=== PATIENT | female | born 1985 | race Caucasian/White ===

== ENCOUNTER 2020-03-08 10:21 | Emergency (ER) | payer SELFPAY ==
--- NOTE | ~2020-03-08 | US_ITS ---
US right upper quadrant INDICATION: Right upper quadrant pain, nausea and vomiting PROCEDURE: Realtime right upper abdominal ultrasound. COMPARISON: Ultrasound dated 03/01/2011 FINDINGS: The pancreas is normal without focal mass or pancreatic ductal dilation. Liver echotexture is increased, consistent with fatty infiltration. There is normal directional flow in the portal ve in. The gallbladder is normal without stones, gallbladder wall thickening or pericholecystic fluid. Comm on bile duct measures 3 mm. No sonographic Maxwell's sign. IMPRESSION: 1: Hepatic steatosis. Reviewed, dictated and finalized at location B. IMPRESSION: 1: Hepatic steatosis.
[2020-03-08 10:29] VITALS: BP 129/81; PULSE 69; RESP 16; TEMP 36.4; O2SAT 99
[2020-03-08 11:57] LABS: Basophils Percent Auto 0.5 % (0.2-1.2); Eosinophils Absolute Auto 0.1 K/mm3 (0-0.3); Eosinophils Percent Auto 1.9 % (0-4.4); Hemoglobin 12.6 g/dL (12.0-15.0); Immature Granulocyte Absolute 0.03 K/mm3 (0.00-0.031); Immature Granulocyte Percent A 0.5 % (0-0.5); Lymphocytes Absolute Auto 1.79 K/mm3 (0.9-3.2); Lymphocytes Percent Auto 28.6 % (18.3-44.2); Mean Corpuscular HGB Conc 34.1 g/dl (32-36); Mean Corpuscular Hemoglobin 31.3 pg (26-34); Mean Corpuscular Volume 91.8 fl (80-100); Mean Platelet Volume 10.5 fl (7.4-10.4); Monocytes Absolute Auto 0.4 K/mm3 (0.1-0.6); Monocytes Percent Auto 6.7 % (2.6-8.5); Neutrophils Absolute Auto 3.9 K/mm3 (1.3-6.7); Neutrophils Percent Auto 61.8 % (45.5-73.1); Platelet Count Result 263 k/mm3 (150-375); Red Blood Count 4.03 M/mm3 (4.2-5.4); Red Cell Distribution Width 11.9 % (11.5-14.5); White Blood Count 6.3 K/mm3 (4.5-10.0)
[2020-03-08 12:09] LABS: Alanine Aminotransferase 33 U/L (4-35); Alkaline Phosphatase 87 U/L (38-126); Aspartate Amino Transferase 34 U/L (14-36); Bilirubin,Total 0.4 mg/dL (0.2-1.3); Blood Urea Nitrogen 13 mg/dL (7-17); Calcium 8.9 mg/dL (8.4-10.2); Carbon Dioxide 27 mmol/L (22-30); Chloride 104 mmol/L (98-107); Estimated CRCL calculation 106 ml/min; Estimated Glomerular Filt Rate > 60; Glucose 102 mg/dL (65-105); Lipase 112 U/L (23-300); Potassium 3.9 mmol/L (3.4-5.0); Sodium 135 mmol/L (137-145)
--- NOTE | 2020-03-08 12:21 | ED.ABDPAIN ---
HPI - Abdominal Pain General Chief Complaint: Abdominal Pain Stated Complaint: abd pain/swelling/ho liver problems Time Seen by Provider: 03/08/20 10:35 History of Present Illness HPI narrative: Patient is a 35-year-old female who presents ER with epigastric and right upper quadrant abdominal discomfort. Reports she was seen at an outside hospital and had a CT scan that showed fatty liver. Reports she has episodes where her stomach becomes very distended and she has a lot of sharp pain that radiates to her back. She is not particularly flatulent or belching. She is tried simethicone and dicyclomine. She follows up with her doctor in 2 weeks but is concerned that that is not close enough. No fevers or chills or sweats. No diarrhea. Related Data Home Medications Medication Instructions Recorded Confirmed lamotrigine BID 03/08/20 levothyroxine DAILY 03/08/20 lithium carbonate 450 PO BID 03/08/20 quetiapine 600 HS 03/08/20 tramadol See Rx Instructions .ROUTE .COMPLEX 03/08/20 03/08/20 Allergies Allergy/AdvReac Type Severity Reaction Status Date / Time Penicillins Allergy Hives Verified 03/08/20 12:29 MOLD Allergy Hives Uncoded 03/08/20 12:28 Review of Systems Review of Systems: All systems reviewed & are unremarkable except as noted in HPI and below Constitutional: Constitutional: Denies chills, Denies fever(s) and Denies weakness ENT: Denies nasal congestion and Denies sore throat Respiratory: Respiratory: Denies cough and Denies dyspnea Gastrointestinal: Gastrointestinal: Reports abdominal pain, Reports bloating, Denies constipation, Denies heartburn, Denies diarrhea, Reports nausea and Denies vomiting PMFSH Past Medical History Medical History (Updated 03/08/20 @ 12:30 by Isidro Charlton MD) Anxiety Depression No pertinent past medical history Surgical History Surgical History (Updated 03/08/20 @ 12:26 by Isidro Charlton MD) History of section History of D&C Social History Social History (Updated 03/08/20 @ 12:27 by Isidro Charlton MD) Alcohol intake: current Exam Narrative: Exam Narrative: GENERAL: Well-appearing, well-nourished, and in no acute distress. HEAD: Normocephalic, atraumatic. ENT: Mucous membranes moist. CHEST: Clear to auscultation. No respiratory distress. HEART: Regular rate and rhythm. Normal peripheral pulses. ABDOMEN: Soft, nontender, nondistended, normal active bowel sounds. EXTREMITIES: Normal range of motion. No edema. NEURO: Alert and oriented x3. PSYCH: Normal mood and affect. Course Course Emergency Course: Seems to be having issues with bloating and gas but could also potentially have a dysfunctional gallbladder. Recommend outpatient follow-up with PCP and HIDA scan. Vital Signs Vital signs: Vital Signs Temperature 97.6 F 03/08/20 10:29 Pulse Rate 69 03/08/20 10:29 Respiratory Rate 16 03/08/20 10:29 Blood Pressure 129/81 03/08/20 10:29 Pulse Oximetry 99 03/08/20 10:29 Temperature 97.6 F 03/08/20 10:29 Pulse Rate 69 03/08/20 10:29 Respiratory Rate 16 03/08/20 10:29 Blood Pressure 129/81 03/08/20 10:29 Pulse Oximetry 99 03/08/20 10:29 MDM - Abdominal Pain Lab Data Result diagrams: 03/08/20 11:52 03/08/20 11:52 Labs: Lab Results 03/08/20 03/08/20 Range/Units 11:52 11:52 WBC 6.3 (4.5-10.0) K/mm3 RBC 4.03 L (4.2-5.4) M/mm3 Hgb 12.6 (12.0-15.0) g/dL Hct 37.0 (37.0-47.0) % MCV 91.8 (80-100) fl MCH 31.3 (26-34) pg MCHC 34.1 (32-36) g/dl RDW 11.9 (11.5-14.5) % Plt Count 263 (150-375) k/mm3 MPV 10.5 H (7.4-10.4) fl Immature Gran % (Auto) 0.5 (0-0.5) % Neut % (Auto) 61.8 (45.5-73.1) % Lymph % (Auto) 28.6 (18.3-44.2) % Jackson % (Auto) 6.7 (2.6-8.5) % Eos % (Auto) 1.9 (0-4.4) % Baso % (Auto) 0.5 (0.2-1.2) % Lymph # (Auto) 1.79 (0.9-3.2) K/mm3 Jackson # (Auto) 0.4 (0.1-0.6) K/mm3 Eos # (Aut
[2020-03-08 12:41] VITALS: BP 127/70; PULSE 59; RESP 16; O2SAT 100
== END 2020-03-08 12:52 | disposition home or self-care (01) ==
PROVIDERS: Emergency Provider Emergency Medicine
DX: R10.13 Epigastric pain (principal); G89.29 Other chronic pain; K76.0 Fatty (change of) liver, not elsewhere classified; F41.9 Anxiety disorder, unspecified; F32.9 Major depressive disorder, single episode, unspecified
CPT/HCPCS: 36415; 76705; 80053; 83690; 85025; 99284

== ENCOUNTER 2020-11-02 07:35 | Emergency (ER) | payer SELFPAY ==
--- NOTE | ~2020-11-02 | CT_ITS ---
EXAMINATION: CT abdomen pelvis wo con EXAM DATE: 11/02/2020 08:16 INDICATION: Left flank pain. Dysuria, hematuria. Lower abdominal pain. TECHNIQUE: Spiral CT of the abdomen and pelvis was performed without contrast. Axial, coronal and sag ittal images were reviewed. The dose-length product (DLP) for this examination was 1479.79 mGy-cm. The exposure was tailored according to patient size (auto mA exposure control), and iterative reconst ruction (ASIR) was used as additional dose reduction technique. Comparison is made to prior examinati on from 11/13/2010. FINDINGS: There is no nephrolithiasis or hydronephrosis. The uterus is not identified and has likel y been surgically resected. The bladder is unremarkable. There is hepatic steatosis without suspici ous focal lesion identified. Spleen, adrenal glands, pancreas are unremarkable. Gallbladder is unrem arkable. No biliary obstruction. There is no retroperitoneal or pelvic lymphadenopathy. The appendix is normal. The stomach and small bowel are unremarkable. There is expected amount of c olonic stool. No free intraperitoneal gas. The heart is normal in size. There are no pericardial or pleural effusions. The lung bases are unremarkable. The bones are unremarkable. IMPRESSION: No nephrolithiasis, hydronephrosis or acute intra-abdominal findings. Reviewed, dictated and finalized at location B. [employer] L[employer]INATOR IMPRESSION: No nephrolithiasis, hydronephrosis or acute intra-abdominal finding s.
[2020-11-02 07:42] VITALS: BP 134/99; PULSE 100; RESP 18; TEMP 35.7; O2SAT 99
--- NOTE | 2020-11-02 08:00 | ED.GENADULT ---
HPI - General Adult General Chief complaint: Urogenital-Female Stated complaint: pelvic Time Seen by Provider: 11/02/20 07:47 Source: patient History of Present Illness HPI narrative: Patient is a 35 y/o female complaining of pelvic pain starting 3 days ago. She describes her pain as stabbing and rates it as 6/10. She took Tylenol which did not help with her pain. She was given Macrobid for presumed UTI and it did not help with her pain either. She also developed nausea, left back pain rated 8/10 yesterday. She has no fever, chill or vomiting. Related Data Home Medications Medication Instructions Recorded Confirmed lamotrigine BID 03/08/20 levothyroxine DAILY 03/08/20 lithium carbonate 450 PO BID 03/08/20 quetiapine 600 HS 03/08/20 tramadol See Rx Instructions .ROUTE .COMPLEX 03/08/20 03/08/20 Allergies Allergy/AdvReac Type Severity Reaction Status Date / Time Penicillins Allergy Hives Verified 11/02/20 07:46 MOLD Allergy Hives Uncoded 03/08/20 12:28 Review of Systems Constitutional: Constitutional: Denies chills, Denies fever(s), Denies headache(s) and Denies weakness Eyes: Eyes: Denies blurry vision ENT: Denies headache(s) and Denies neck pain Cardiovascular: Cardiovascular: Denies chest pain and Denies dyspnea Respiratory: Respiratory: Denies cough and Denies dyspnea Gastrointestinal: Gastrointestinal: Denies abdominal pain, Denies diarrhea, Denies nausea and Denies vomiting Genitourinary: Genitourinary: Denies hematuria, Reports dysuria and Reports pelvic pain Musculoskeletal: Musculoskeletal: Reports back pain and Denies neck pain Neurologic: Denies headache(s) and Denies weakness [facility] Past Medical History Medical History Anxiety Depression No pertinent past medical history Surgical History Surgical History History of section History of D&C Social History Social History Alcohol intake: current Gender identity (if verbalized by the patient): Female Exam Const: General: no acute distress and well developed Orientation/consciousness: oriented to person, oriented to place, oriented to time and patient oriented x3 HENMT: Head: normocephalic Ears: external ears normal General nose exam: Normal external nose present Eyes: General: appearance normal, both eyes and all related structures Conjunctivae: conjunctivae normal Neck: Neck: normal visual inspection and full ROM Chest: Chest palpation & inspection: normal inspection of the chest and no tenderness Resp: Effort & Inspection: normal respiratory effort Auscultation: clear to auscultation bilaterally Cardio: Rate: regular rate Rhythm: regular rhythm GI: GI Palp: No abdominal tenderness and Yes Soft to palpation Skin: General skin exam: normal color and turgor normal Neuro: General: oriented to person, oriented to place, oriented to time and patient oriented x3 Cognition (Neuro): normal cognition Extrem: General: normal to inspection, full ROM and no pedal edema Psych: Appearance: grossly normal Mental Status: mental status grossly normal Affect: normal affect Course Vital Signs Vital signs: Vital Signs Temperature 35.7 C L 11/02/20 07:42 Pulse Rate 100 11/02/20 07:42 Respiratory Rate 18 11/02/20 07:42 Blood Pressure 134/99 H 11/02/20 07:42 Pulse Oximetry 99 11/02/20 07:42 Temperature 35.7 C L 11/02/20 07:42 Pulse Rate 84 11/02/20 09:37 Respiratory Rate 18 11/02/20 09:37 Blood Pressure 119/50 L 11/02/20 09:37 Pulse Oximetry 98 11/02/20 09:37 Medical Decision Making Vital Signs Vital Signs: Vital Signs Temperature 35.7 C L 11/02/20 07:42 Pulse Rate 100 11/02/20 07:42 Respiratory Rate 18 11/02/20 07:42 Blood Pressure 134/99 H 11/02/20 07:42 Pulse Oximetry 99 11/02/20 07:42 Temperature
[2020-11-02 08:03] LABS: Add Urine Microscopic? YES; Appearance Urine Clear (Clear); Bilirubin Urine Negative (Negative); Blood Urine 1+ (Negative); Color Urine Yellow (Yellow); Glucose Urine UA Negative (Negative); Ketones Urine Trace mg/dL (Negative); Leukocyte Esterase Ur 1+ LEU/UL (Negative); Nitrate Urine Negative (Negative); Protein Urine Negative (Negative); RBC Urine 0-2 /hpf (0-2); Specific Grav Ur 1.019 (1.001-1.035); Squamous Epithelial Cell Urine Moderate /hpf (Few); Urobilinogen Urine Negative mg/dL (<2.0); WBC Urine 0-3 /hpf
[2020-11-02 08:11] LABS: Hematocrit 37.8 % (37.0-47.0); Hemoglobin 12.8 g/dL (12.0-15.0); Immature Granulocyte Absolute 0.03 K/mm3 (0.00-0.031); Immature Granulocyte Percent A 0.5 % (0-0.5); Lymphocytes Absolute Auto 1.43 K/mm3 (0.9-3.2); Lymphocytes Percent Auto 22.8 % (18.3-44.2); Mean Corpuscular HGB Conc 33.9 g/dl (32-36); Mean Corpuscular Hemoglobin 31.8 pg (26-34); Mean Corpuscular Volume 93.8 fl (80-100); Mean Platelet Volume 10.3 fl (7.4-10.4); Monocytes Absolute Auto 0.5 K/mm3 (0.1-0.6); Monocytes Percent Auto 7.3 % (2.6-8.5); Neutrophils Absolute Auto 4.4 K/mm3 (1.3-6.7); Neutrophils Percent Auto 69.4 % (45.5-73.1); Platelet Count Result 206 k/mm3 (150-375); Red Blood Count 4.03 M/mm3 (4.2-5.4); Red Cell Distribution Width 11.9 % (11.5-14.5); White Blood Count 6.3 K/mm3 (4.5-10.0)
[2020-11-02 08:22] LABS: Anion Gap 7 mmol/L (8-16); Blood Urea Nitrogen 20 mg/dL (7-17); Calcium 9.6 mg/dL (8.4-10.2); Carbon Dioxide 27 mmol/L (22-30); Chloride 104 mmol/L (98-107); Estimated CRCL calculation 90 ml/min; Estimated Glomerular Filt Rate > 60; Glucose 98 mg/dL (65-105); Potassium 3.9 mmol/L (3.4-5.0); Sodium 138 mmol/L (137-145)
[2020-11-02] MEDS: CYCLOBENZAPRINE HCL 10 MG TABLET PO (08:22)
[2020-11-02] MEDS: ONDANSETRON INJ 4 MG/2 ML VIAL IV PUSH (08:22)
[2020-11-02 09:37] VITALS: BP 119/50; PULSE 84; RESP 18; O2SAT 98
== END 2020-11-02 09:38 | disposition home or self-care (01) ==
PROVIDERS: Emergency Provider Emergency Medicine
DX: R10.2 Pelvic and perineal pain (principal); M54.5 Low back pain; F41.9 Anxiety disorder, unspecified; F32.9 Major depressive disorder, single episode, unspecified
CPT/HCPCS: 36415; 74176; 80048; 81001; 85025; 96374; 99284; A9270; J2405

== ENCOUNTER 2020-11-12 08:45 | Emergency (ER) | payer MEDICAID, SELFPAY ==
[2020-11-12 08:54] VITALS: BP 149/86; PULSE 82; RESP 20; TEMP 36.4; O2SAT 100
[2020-11-12 09:11] LABS: Add Urine Microscopic? YES; Appearance Urine Cloudy (Clear); Bilirubin Urine Negative (Negative); Blood Urine 1+ (Negative); Color Urine Yellow (Yellow); Glucose Urine UA Negative (Negative); Ketones Urine Negative (Negative); Leukocyte Esterase Ur 2+ LEU/UL (Negative); Mucus Urine Rare /lpf; Nitrate Urine Negative (Negative); Protein Urine 1+ mg/dL (Negative); Specific Grav Ur 1.023 (1.001-1.035); Squamous Epithelial Cell Urine Many /hpf (Few); Urobilinogen Urine Negative mg/dL (<2.0); WBC Urine 21-30 /hpf
[2020-11-12] MEDS: ONDANSETRON INJ 4 MG/2 ML VIAL IV PUSH (09:23)
[2020-11-12 09:28] LABS: Basophils Percent Auto 0.2 % (0.2-1.2); Eosinophils Percent Auto 0.2 % (0-4.4); Hemoglobin 14.7 g/dL (12.0-15.0); Immature Granulocyte Absolute 0.03 K/mm3 (0.00-0.031); Immature Granulocyte Percent A 0.5 % (0-0.5); Lymphocytes Absolute Auto 1.35 K/mm3 (0.9-3.2); Lymphocytes Percent Auto 20.4 % (18.3-44.2); Mean Corpuscular HGB Conc 34.2 g/dl (32-36); Mean Corpuscular Hemoglobin 31.5 pg (26-34); Mean Corpuscular Volume 92.1 fl (80-100); Mean Platelet Volume 9.5 fl (7.4-10.4); Monocytes Absolute Auto 0.3 K/mm3 (0.1-0.6); Monocytes Percent Auto 5.1 % (2.6-8.5); Neutrophils Absolute Auto 4.9 K/mm3 (1.3-6.7); Neutrophils Percent Auto 73.6 % (45.5-73.1); Platelet Count Result 308 k/mm3 (150-375); Red Blood Count 4.67 M/mm3 (4.2-5.4); Red Cell Distribution Width 11.8 % (11.5-14.5); White Blood Count 6.6 K/mm3 (4.5-10.0)
[2020-11-12] MEDS: KETOROLAC 30 MG/ML VIAL (*BKC) IV PUSH (09:32)
[2020-11-12 09:36] VITALS: BP 127/102; PULSE 72; RESP 16; O2SAT 100
[2020-11-12 10:03] LABS: Alanine Aminotransferase 43 U/L (4-35); Albumin Level 5.1 g/dL (3.5-5.1); Alkaline Phosphatase 79 U/L (38-126); Anion Gap 12 mmol/L (8-16); Aspartate Amino Transferase 41 U/L (14-36); Bilirubin,Total 0.8 mg/dL (0.2-1.3); Blood Urea Nitrogen 15 mg/dL (7-17); Carbon Dioxide 24 mmol/L (22-30); Chloride 103 mmol/L (98-107); Estimated CRCL calculation 102 ml/min; Estimated Glomerular Filt Rate > 60; Glucose 114 mg/dL (65-105); Potassium 4.6 mmol/L (3.4-5.0); Sodium 139 mmol/L (137-145)
[2020-11-12 11:42] VITALS: BP 138/84; PULSE 78; RESP 16; O2SAT 99
--- NOTE | 2020-11-12 11:46 | ED.GENADULT ---
HPI - General Adult General Chief complaint: Recheck/Abnormal Lab/Rx Stated complaint: out of medications- feeling sick Time Seen by Provider: 11/12/20 08:56 History of Present Illness HPI narrative: Patient is a 35-year-old female who presents to the ER with complaints of withdrawal symptoms from her medications and need for medication refill. Reports has been having headache and difficulty sleeping since she has gone off of her lithium, Seroquel, and Lamictal. She reports that she only has limited funds to fill medications and to see physicians. She cannot afford to go see her primary doctor sure she was come here for refill. She had no seizures. She reports he is feeling more depressed but no SI or HI. She is not hearing voices. Reports do not sleeping she has been having mild frontal and bitemporal headache that is throbbing in nature. No fevers or chills or sweats. She has no nausea no vomiting. Related Data Home Medications Medication Instructions Recorded Confirmed lamotrigine BID 03/08/20 levothyroxine DAILY 03/08/20 lithium carbonate 450 PO BID 03/08/20 quetiapine 600 HS 03/08/20 tramadol See Rx Instructions .ROUTE .COMPLEX 03/08/20 03/08/20 Allergies Allergy/AdvReac Type Severity Reaction Status Date / Time Penicillins Allergy Hives Verified 11/12/20 08:57 MOLD Allergy Hives Uncoded 11/12/20 08:57 Review of Systems Review of Systems: All systems reviewed & are unremarkable except as noted in HPI and below Constitutional: Constitutional: Denies chills, Denies fever(s) and Denies weakness ENT: Denies nasal congestion and Denies sore throat Cardiovascular: Cardiovascular: Denies chest pain, Denies rapid heart rate and Denies radiating jaw, neck or arm pain Gastrointestinal: Gastrointestinal: Denies abdominal pain, Denies nausea and Denies vomiting Neurologic: Reports headache(s), Denies focal weakness and Denies numbness PMFSH Past Medical History Medical History Anxiety Depression No pertinent past medical history Surgical History Surgical History History of section History of D&C Social History Social History Alcohol intake: current Gender identity (if verbalized by the patient): Female Exam Narrative: Exam Narrative: GENERAL: Well-appearing, well-nourished, and in no acute distress. HEAD: Normocephalic, atraumatic. ENT: Mucous membranes moist. CHEST: Clear to auscultation. No respiratory distress. HEART: Regular rate and rhythm. Normal peripheral pulses. ABDOMEN: Soft, nontender, nondistended. EXTREMITIES: Normal range of motion. No edema. SKIN: Warm, dry, no rash. NEURO: Alert and oriented x3. PSYCH: Normal mood and affect. Course Course Emergency Course: Patient informed of results. After being informed of UA results reports has had some mild dysuria. Will start on antibiotics as well as refilling her home meds. Vital Signs Vital signs: Vital Signs Temperature 97.5 F L 11/12/20 08:54 Pulse Rate 82 11/12/20 08:54 Respiratory Rate 20 11/12/20 08:54 Blood Pressure 149/86 H 11/12/20 08:54 Pulse Oximetry 100 11/12/20 08:54 Temperature 97.5 F L 11/12/20 08:54 Pulse Rate 78 11/12/20 11:42 Respiratory Rate 16 11/12/20 11:42 Blood Pressure 138/84 11/12/20 11:42 Pulse Oximetry 99 11/12/20 11:42 Medical Decision Making Vital Signs Vital Signs: Vital Signs Temperature 97.5 F L 11/12/20 08:54 Pulse Rate 82 11/12/20 08:54 Respiratory Rate 20 11/12/20 08:54 Blood Pressure 149/86 H 11/12/20 08:54 Pulse Oximetry 100 11/12/20 08:54 Temperature 97.5 F L 11/12/20 08:54 Pulse Rate 78 11/12/20 11:42 Respiratory Rate 16 11/12/20 11:42 Blood Pressure 138/84 11/12/20 11:42 Pulse Oximetry 99 11/12/20 11:42 Lab Data Result diagrams:
== END 2020-11-12 12:09 | disposition home or self-care (01) ==
PROVIDERS: Emergency Provider Emergency Medicine
DX: F32.9 Major depressive disorder, single episode, unspecified (principal); F41.9 Anxiety disorder, unspecified; N39.0 Urinary tract infection, site not specified
CPT/HCPCS: 36415; 80053; 81001; 85025; 87077; 87086; 87088; 96374; 96375; 99284; J1885; J2405

== ENCOUNTER 2020-12-07 16:33 | Emergency (ER) | payer BC, SELFPAY ==
[2020-12-07 16:48] VITALS: BP 144/83; PULSE 74; RESP 18; TEMP 36.4; O2SAT 100
--- NOTE | 2020-12-07 17:01 | ED.GENADULT ---
HPI - General Adult General Chief complaint: Recheck/Abnormal Lab/Rx Stated complaint: med refill Time Seen by Provider: 12/07/20 16:53 History of Present Illness HPI narrative: Patient is a 35-year-old female who presents ER for medication refill. She is out of her Seroquel 600 mg that she takes in the evenings. She has follow-up with her primary care doctor in a week. She has no internal or external stimuli. No depression or thoughts of harming herself or others. Denies any other issues. Has not been able to find a psychiatrist. Related Data Home Medications Medication Instructions Recorded Confirmed lamotrigine BID 03/08/20 levothyroxine DAILY 03/08/20 lithium carbonate 450 PO BID 03/08/20 quetiapine 600 HS 03/08/20 tramadol See Rx Instructions .ROUTE .COMPLEX 03/08/20 03/08/20 Allergies Allergy/AdvReac Type Severity Reaction Status Date / Time Penicillins Allergy Hives Verified 12/07/20 16:54 MOLD Allergy Hives Uncoded 11/12/20 08:57 Review of Systems Neurologic: Denies dizziness, Denies focal weakness and Denies numbness Psychiatric: Psychiatric: Denies anxiety, Denies depression, Denies homicidal ideation and Denies suicidal ideation PMFSH Past Medical History Medical History Anxiety Depression No pertinent past medical history Surgical History Surgical History History of section History of D&C Social History Social History Alcohol intake: current Gender identity (if verbalized by the patient): Female Exam Narrative: Exam Narrative: GENERAL: Well-appearing, well-nourished, and in no acute distress. HEAD: Normocephalic, atraumatic. CHEST: Clear to auscultation. No respiratory distress. HEART: Regular rate and rhythm. Normal peripheral pulses. NEURO: Alert and oriented x3. PSYCH: Normal mood and affect. Course Course Emergency Course: Will give medication refill and [facility] contact information. Vital Signs Vital signs: Vital Signs Temperature 97.5 F L 12/07/20 16:48 Pulse Rate 74 12/07/20 16:48 Respiratory Rate 18 12/07/20 16:48 Blood Pressure 144/83 H 12/07/20 16:48 Pulse Oximetry 100 12/07/20 16:48 Temperature 97.5 F L 12/07/20 16:48 Pulse Rate 74 12/07/20 16:48 Respiratory Rate 18 12/07/20 16:48 Blood Pressure 144/83 H 12/07/20 16:48 Pulse Oximetry 100 12/07/20 16:48 Medical Decision Making Vital Signs Vital Signs: Vital Signs Temperature 97.5 F L 12/07/20 16:48 Pulse Rate 74 12/07/20 16:48 Respiratory Rate 18 12/07/20 16:48 Blood Pressure 144/83 H 12/07/20 16:48 Pulse Oximetry 100 12/07/20 16:48 Temperature 97.5 F L 12/07/20 16:48 Pulse Rate 74 12/07/20 16:48 Respiratory Rate 18 12/07/20 16:48 Blood Pressure 144/83 H 12/07/20 16:48 Pulse Oximetry 100 12/07/20 16:48 Discharge Plan Discharge Clinical Impression: Encounter for medication refill Patient Disposition: Home, Self-Care Condition: Stable Instructions: Normal Exam (ED) Additional Instructions: Return to the ER if you have thoughts of harming yourself or others, you have chest pain or shortness of breath, you cannot keep down food or water, you have additional concerns. Prescriptions: New quetiapine [Seroquel] 300 mg tablet 600 mg PO HS Qty: 60 RF: 0 No Action lamotrigine 200 mg tablet BID RF: 0 quetiapine 300 mg tablet 600 HS RF: 0 lithium carbonate 300 mg tablet extended release 450 PO BID RF: 0 tramadol 50 mg tablet See Rx Instructions .ROUTE .COMPLEX RF: 0 levothyroxine 100 mcg tablet DAILY RF: 0 simethicone 125 mg capsule 125 mg PO QID Qty: 20 RF: 0 dicyclomine 20 mg tablet 20 mg PO QID Qty: 20 RF: 0 famotidine 20 mg tablet 20 mg PO BID Qty: 20 RF: 0 lamotrigine [Lamictal
== END 2020-12-07 17:45 | disposition home or self-care (01) ==
LOC: ANHED 17:09
PROVIDERS: Emergency Provider Emergency Medicine; PCP Family Medicine
DX: F41.9 Anxiety disorder, unspecified (principal); F32.9 Major depressive disorder, single episode, unspecified; Z76.0 Encounter for issue of repeat prescription
CPT/HCPCS: 99281

== ENCOUNTER 2021-02-01 09:02 | Emergency (ER) | payer BC, SELFPAY ==
[2021-02-01 09:22] VITALS: BP 132/85; PULSE 80; RESP 14; TEMP 36.4; O2SAT 99
--- NOTE | 2021-02-01 09:29 | ED.GENADULT ---
HPI - General Adult General Chief complaint: Unspecified Stated complaint: Ran out of Meds Time Seen by Provider: 02/01/21 09:18 Source: patient, family and RN notes reviewed Mode of arrival: ambulatory Limitations: no limitations History of Present Illness HPI narrative: Patient a 36-year-old female who presents to emergency department for evaluation of needing medication refill notes that she is out of her psych medications for bipolar disorder patient notes that her primary care doctor's office is closed down she has a follow-up with a new primary care in 1 week and in 1 month will see a new therapist and psychiatrist with [facility] [place]. Patient denies any suicidal homicidal ideation or any passive thoughts of harming herself or others. On arrival patient in no distress resting comfortably in the room denies other concerns or complaints Related Data Home Medications Medication Instructions Recorded Confirmed lamotrigine BID 03/08/20 levothyroxine DAILY 03/08/20 lithium carbonate 450 PO BID 03/08/20 tramadol See Rx Instructions .ROUTE .COMPLEX 03/08/20 03/08/20 Allergies Allergy/AdvReac Type Severity Reaction Status Date / Time Penicillins Allergy Hives Verified 12/07/20 16:54 MOLD Allergy Hives Uncoded 11/12/20 08:57 Review of Systems Review of Systems: All systems reviewed & are unremarkable except as noted in HPI and below PMFSH Past Medical History Medical History Anxiety Depression No pertinent past medical history Surgical History Surgical History History of section History of D&C Social History Social History Alcohol intake: current Gender identity (if verbalized by the patient): Female Exam Narrative: Exam Narrative: GENERAL: Well-appearing, obese, and in no acute distress. HEAD: Normocephalic, atraumatic. EYES: PERRLA and EOMI. ENT: Nares clear, no rhinorrhea or epistaxis. Mucous membranes moist. CHEST: Clear to auscultation. No respiratory distress. No wheezes rales or rhonchi HEART: Regular rate and rhythm. No murmur heard. EXTREMITIES: Normal range of motion. No edema. SKIN: Warm, dry, no rash. NEURO: No focal deficits. Alert and oriented x3. Cranial nerves II through XII grossly intact PSYCH: Normal mood and affect. Course Course Emergency Course: Patient in the room no distress will be discharged home medications will be refilled she will follow with primary care advised to return if symptoms worsen ABCs and vital signs intact and stable Vital Signs Vital signs: Vital Signs Temperature 97.6 F 02/01/21 09:22 Pulse Rate 80 02/01/21 09:22 Respiratory Rate 14 02/01/21 09:22 Blood Pressure 132/85 02/01/21 09:22 Pulse Oximetry 99 02/01/21 09:22 Temperature 97.6 F 02/01/21 09:22 Pulse Rate 80 02/01/21 09:22 Respiratory Rate 14 02/01/21 09:22 Blood Pressure 132/85 02/01/21 09:22 Pulse Oximetry 99 02/01/21 09:22 Medical Decision Making MDM Narrative Medical decision making narrative: Patient presented for medication refill will have medications filled given she is currently waiting to see her new primary care and therapist felt appropriate for outpatient reevaluation Vital Signs Vital Signs: Vital Signs Temperature 97.6 F 02/01/21 09:22 Pulse Rate 80 02/01/21 09:22 Respiratory Rate 14 02/01/21 09:22 Blood Pressure 132/85 02/01/21 09:22 Pulse Oximetry 99 02/01/21 09:22 Temperature 97.6 F 02/01/21 09:22 Pulse Rate 80 02/01/21 09:22 Respiratory Rate 14 02/01/21 09:22 Blood Pressure 132/85 02/01/21 09:22 Pulse Oximetry 99 02/01/21 09:22 Discharge Plan Discharge Clinical Impression: Medication refill Patient Disposition: Home, Self-Care Condition: Stable Instructions: Antibiotic Form, Medicine
== END 2021-02-01 10:08 | disposition home or self-care (01) ==
LOC: ANHED 09:56
PROVIDERS: Emergency Provider Emergency Medicine
DX: F31.9 Bipolar disorder, unspecified (principal); F41.9 Anxiety disorder, unspecified
CPT/HCPCS: 99281

== ENCOUNTER 2021-06-02 10:50 | Emergency (ER) | payer BC, SELFPAY ==
[2021-06-02 11:11] VITALS: BP 134/78; PULSE 98; RESP 16; TEMP 36.7; O2SAT 100
[2021-06-02 12:26] LABS: Basophils Percent Auto 0.1 % (0.2-1.2); Eosinophils Percent Auto 0.3 % (0-4.4); Hematocrit 40.4 % (37.0-47.0); Hemoglobin 13.5 g/dL (12.0-15.0); Immature Granulocyte Absolute 0.01 K/mm3 (0.00-0.031); Immature Granulocyte Percent A 0.1 % (0-0.5); Lymphocytes Absolute Auto 1.57 K/mm3 (0.9-3.2); Lymphocytes Percent Auto 21.9 % (18.3-44.2); Mean Corpuscular HGB Conc 33.4 g/dl (32-36); Mean Corpuscular Hemoglobin 31.7 pg (26-34); Mean Corpuscular Volume 94.8 fl (80-100); Mean Platelet Volume 9.8 fl (7.4-10.4); Monocytes Absolute Auto 0.3 K/mm3 (0.1-0.6); Monocytes Percent Auto 4.1 % (2.6-8.5); Neutrophils Absolute Auto 5.3 K/mm3 (1.3-6.7); Neutrophils Percent Auto 73.5 % (45.5-73.1); Platelet Count Result 292 k/mm3 (150-375); Red Blood Count 4.26 M/mm3 (4.2-5.4); Red Cell Distribution Width 11.6 % (11.5-14.5); White Blood Count 7.2 K/mm3 (4.5-10.0)
[2021-06-02 12:32] LABS: Alanine Aminotransferase 40 U/L (4-35); Albumin Level 5.4 g/dL (3.5-5.1); Alkaline Phosphatase 94 U/L (38-126); Anion Gap 13 mmol/L (8-16); Aspartate Amino Transferase 33 U/L (14-36); Bilirubin,Total 0.7 mg/dL (0.2-1.3); Blood Urea Nitrogen 12 mg/dL (7-17); Calcium 10.3 mg/dL (8.4-10.2); Carbon Dioxide 22 mmol/L (22-30); Chloride 104 mmol/L (98-107); Estimated CRCL calculation 99 ml/min; Estimated Glomerular Filt Rate > 60; Glucose 105 mg/dL (65-110); Potassium 4.3 mmol/L (3.4-5.0); Sodium 139 mmol/L (137-145)
[2021-06-02 13:40] VITALS: BP 130/69; PULSE 90; RESP 15; O2SAT 99
--- NOTE | 2021-06-02 14:19 | PC.NURSE ---
Pt left ED without informing RN. This RN saw pt walking in parking lot. No paperwork or discharge instructions given to pt.
--- NOTE | 2021-06-02 14:26 | ED.EXTPRO ---
HPI - Extremity Problem General Chief complaint: Extremity Problem,Nontraumatic Stated complaint: restless legs Time Seen by Provider: 06/02/21 11:15 Source: patient Mode of arrival: ambulatory Limitations: no limitations History of Present Illness HPI Narrative: Patient with history of anxiety, depression, hypothyroidism, chronic back pain presents with chief complaint of bilateral lower leg pain over the past 3 days. She states that it feels like previous bouts of restless leg syndrome however it is different and that she feels throbbing in her lower legs. There is no swelling, erythema, injury to the leg. Patient states she had taken some of her hydrocodone for her back but she is run out. Patient states she cannot be seen by her primary care today so she presented to emergency department. Patient states that she sees her chest and psychiatrist tomorrow for reevaluation of her medications. She states that they have been adjusting her Seroquel dosage. Related Data Home Medications Medication Instructions Recorded Confirmed lamotrigine BID 03/08/20 levothyroxine DAILY 03/08/20 lithium carbonate 450 PO BID 03/08/20 tramadol See Rx Instructions .ROUTE .COMPLEX 03/08/20 03/08/20 Allergies Allergy/AdvReac Type Severity Reaction Status Date / Time Penicillins Allergy Hives Verified 06/02/21 11:36 MOLD Allergy Hives Uncoded 06/02/21 11:36 Review of Systems Review of Systems: CONSTITUTIONAL: Denies fever, chills, or sweats. EYES: Denies visual changes, redness, or discharge. ENT: Denies rhinorrhea, congestion, sore throat, or otalgia. CARDIOVASCULAR: Denies chest pain, palpitations, or edema. RESPIRATORY: Denies cough or dyspnea. GASTROINTESTINAL: Denies abdominal pain, nausea, vomiting, or diarrhea. GENITOURINARY: Denies dysuria or hematuria. SKIN: Denies rash or itching. MUSCULOSKELETAL: Reports bilateral lower leg pain denies back pain, joint pain, or myalgia. NEUROLOGIC: Denies headache, numbness, dizziness, or weakness. PSYCHIATRIC: Denies anxiety or depression. [facility] Past Medical History Medical History Anxiety Depression No pertinent past medical history Surgical History Surgical History History of section History of D&C Social History Social History Alcohol intake: current Gender identity (if verbalized by the patient): Female Exam Narrative: GENERAL: Well-appearing, well-nourished, and in no acute distress. HEAD: Normocephalic, atraumatic. EYES: PERRLA and EOMI. NECK: Supple. Range of motion intact. CHEST: Clear to auscultation. No respiratory distress. No wheezes rales or rhonchi HEART: Regular rate and rhythm. No murmur heard. Normal peripheral pulses. EXTREMITIES: Normal range of motion. No edema. No erythema, no pain with palpation of bilateral lower legs. No calf tenderness or signs of DVT. No outward signs of injury or abrasions. SKIN: Warm, dry, no rash. NEURO: No focal deficits. Alert and oriented x3. PSYCH: Normal mood and affect. Course Vital Signs Vital signs: Vital Signs Temperature 98.1 F 06/02/21 11:11 Pulse Rate 98 06/02/21 11:11 Respiratory Rate 16 06/02/21 11:11 Blood Pressure 134/78 06/02/21 11:11 Pulse Oximetry 100 06/02/21 11:11 Temperature 98.1 F 06/02/21 11:11 Pulse Rate 90 06/02/21 13:40 Respiratory Rate 15 06/02/21 13:40 Blood Pressure 130/69 06/02/21 13:40 Pulse Oximetry 99 06/02/21 13:40 MDM - Extremity (Nontraumatic) MDM Narrative Medical decision making narrative: Patient's lithium levels are nontoxic. Patient CBC and CMP appear appropriate. Waiting for inpatient TSH to make sure that her thyroid is not the cause of her symptoms. Discussed with the patient that this could also be due to her psychiatric medications. Patient sarah salamanca
== END 2021-06-03 00:08 | disposition left against medical advice (07) ==
PROVIDERS: Physician Assistant; Emergency Provider Family Medicine; PCP Family Medicine
DX: M79.605 Pain in left leg (principal); M79.604 Pain in right leg; E03.9 Hypothyroidism, unspecified; F32.9 Major depressive disorder, single episode, unspecified; F41.9 Anxiety disorder, unspecified; G89.29 Other chronic pain; M54.9 Dorsalgia, unspecified
CPT/HCPCS: 36415; 80053; 80178; 84443; 85025; 99283